=== PATIENT | male | born 1955 | race Caucasian/White ===

== ENCOUNTER 2018-08-23 21:08 | Emergency (ER) | payer BC ==
--- NOTE | 2018-08-23 21:11 | EDM.PDOC ---
Addendum entered and electronically signed by Alfonso Colon MD 08/24/18 02:13: Patient has refused admission and transfer enhances discharged, Dr. Lam is provided antibiotic coverage the patient is making his own arrangements out of state for treatment and plans to travel to the [place] area tomorrow he may return if symptoms persist or worsen or new concerning symptoms develop in the interim Original Note: <Alfonso Colon - Last Filed: 08/24/18 02:11> ED HPI GENERAL MEDICAL PROBLEM - General Chief Complaint: Abdominal Pain Stated Complaint: PT HAS STOMACH PAINS Time Seen by Provider: 08/23/18 21:09 - History of Present Illness INITIAL COMMENTS - FREE TEXT/NARRATIVE: I've seen and discussed lab and CT findings with patient the patient and consult the general surgery for evaluation and treatment disposition - Related Data Allergies Allergy/AdvReac Type Severity Reaction Status Date / Time povidone-iodine Allergy Rash Verified 08/23/18 21:15 [From Betadine] soap [From Betadine] Allergy Rash Verified 08/23/18 21:15 Home Meds: Home Meds Omeprazole 20 mg PO DAILY 11/21/13 [History] Simvastatin [Zocor] 20 mg PO DAILY 11/21/13 [History] oxyCODONE HCl/Acetaminophen [Percocet 10-325 mg Tablet] 1 each PO BID 11/21/13 [ History] Methotrexate Sodium [Methotrexate] 2.5 mg PO DAILY 08/23/18 [History] Tamsulosin [Tamsulosin 24 Hr] 0.4 mg PO DAILY 08/23/18 [History] prednisoLONE [Millipred] 5 mg PO DAILY 08/23/18 [History] ED ROS GENERAL - Review of Systems Review Of Systems: See Below ED EXAM, GI/ABD - Physical Exam Exam: See Below Course - Vital Signs Last Recorded V/S: Last Vital Signs Temp 98 F 08/24/18 02:38 Pulse 78 08/24/18 02:38 Resp 17 08/24/18 02:38 BP 134/78 08/24/18 02:38 Pulse Ox 95 08/24/18 02:38 - Orders/Labs/Meds Labs: Laboratory Tests 08/23/18 08/23/18 08/23/18 Range/Units 21:23 21:23 21:23 WBC 16.11 H (4.0-11.0) K/uL RBC 5.43 (4.50-5.90) M/uL Hgb 16.9 (13.0-17.0) g/dL Hct 50.7 H (38.0-50.0) % MCV 93.4 (80.0-98.0) fL MCH 31.1 (27.0-32.0) pg MCHC 33.3 (31.0-37.0) g/dL RDW Std Deviation 45.2 (28.0-62.0) fl RDW Coeff of Anny 13 (11.0-15.0) % Plt Count 198 (150-400) K/uL MPV 8.90 (7.40-12.00) fL Neut % (Auto) 90.8 H (48.0-80.0) % Lymph % (Auto) 5.7 L (16.0-40.0) % Emery % (Auto) 3.4 (0.0-15.0) % Eos % (Auto) 0.1 (0.0-7.0) % Baso % (Auto) 0.0 (0.0-1.5) % Neut # (Auto) 14.6 H (1.4-5.7) K/uL Lymph # (Auto) 0.9 (0.6-2.4) K/uL Emery # (Auto) 0.6 (0.0-0.8) K/uL Eos # (Auto) 0.0 (0.0-0.7) K/uL Baso # (Auto) 0.0 (0.0-0.1) K/uL Sodium 139 (136-148) mmol/L Potassium 3.6 (3.5-5.1) mmol/L Chloride 98 (98-107) mmol/L Carbon Dioxide 33.7 H (21.0-32.0) mmol/L BUN 20 H (7.0-18.0) mg/dL Creatinine 1.0 (0.8-1.3) mg/dL Est Cr Clr Drug Dosing 75.61 mL/min Estimated GFR (MDRD) > 60.0 ml/min Glucose 138 H (74-106) mg/dL Calcium 9.1 (8.5-10.1) mg/dL Total Bilirubin 0.8 (0.2-1.0) mg/dL AST 18 (15-37) IU/L ALT 32 (14-63) IU/L Alkaline Phosphatase 80 (46-116) U/L Troponin I (0.000-0.056) ng/mL Total Protein 7.3 (6.4-8.2) g/dL Albumin 3.8 (3.4-5.0) g/dL Globulin 3.5 (2.6-4.0) g/dL Albumin/Globulin Ratio 1.1 (0.9-1.6) Lipase 67 L (73-393) U/L Urine Color YELLOW Urine Appearance CLEAR Urine pH 7.0 (5.0-8.0) Ur Specific [place] 1.010 (1.001-1.035) Urine Protein NEGATIVE (NEGATIVE) mg/dL Urine Glucose (UA) NEGATIVE (NEGATIVE) mg/dL Urine Ketones NEGATIVE (NEGATIVE) mg/dL Urine Occult Blood NEGATIVE (NEGATIVE) Urine Nitrite NEGATIVE (NEGATIVE) Urine Bilirubin NEGATIVE (NEGATIVE) Urine Urobilinogen 1.0 (<2.0) EU/dL Ur Leukocyte Esterase NEGATIVE (NEGATIVE) 08/23/18 Range/Units 21:23 WBC (4.0-11.0) K/uL RBC (4.50-5.90) M/uL Hgb (13.0-17.0) g/dL Hct (38.0-50.0) % MCV (80.0-98.0) fL MCH (27.0-32.0) pg MCHC (31.0-37.0) g/dL RDW Std Deviation (28.0-62.0) fl RDW Coeff of Anny (11.0-15.0) % Plt Count (150-400) K/uL MPV (7.40-12.00) fL Neut % (Auto) (48.0-80.0) % Lymph % (Auto) (16.0-40.0) % Emery % (Auto) (0.0-15.0) % Eos % (Auto) (0.0-7.0) % Baso % (Auto) (0.0-1.5) % Neut # (Auto) (1.4-5.7) K/uL Lymph # (Auto) (0.6-2.4) K/uL Emery # (Auto) (0.0-0.8) K/uL Eos # (Auto) (0.0-0.7) K/uL Baso # (Auto) (0.0-0.1) K/uL Sodium (136-148) mmol/L Potassium (3.5-5.1) mmol/L Chloride (98-107) mmol/L Carbon Dioxide (21.0-32.0) mmol/L BUN (7.0-18.0) mg/dL Creatinine (0.8-1.3) mg/dL Est Cr Clr Drug Dosing mL/min Estimated GFR (MDRD) ml/min Glucose (74-106) mg/dL Calcium (8.5-10.1) mg/dL Total Bilirubin (0.2-1.0) mg/dL AST (15-37) IU/L ALT (14-63) IU/L Alkaline Phosphatase (46-116) U/L Troponin I < 0.050 (0.000-0.056) ng/mL Total Protein (6.4-8.2) g/dL Albumin (3.4-5.0) g/dL Globulin (2.6-4.0) g/dL Albumin/Globulin Ratio (0.9-1.6) Lipase (73-393) U/L Urine Color Urine Appearance Urine pH (5.0-8.0) Ur Specific [place] (1.001-1.035) Urine Protein (NEGATIVE) mg/dL Urine Glucose (UA) (NEGATIVE) mg/dL Urine Ketones (NEGATIVE) mg/dL Urine Occult Blood (NEGATIVE) Urine Nitrite (NEGATIVE) Urine Bilirubin (NEGATIVE) Urine Urobilinogen (<2.0) EU/dL Ur Leukocyte Esterase (NEGATIVE) Meds: Medications Discontinued Medications Generic Name Dose Route Start Last Admin Trade Name Freq PRN Reason Stop Dose Admin Sodium Chloride 1,000 mls @ 999 mls/hr 08/23/18 21:11 08/23/18 21:23 Normal Saline IV 08/23/18 22:11 999 mls/hr STAT ONE Administration Piperacillin Sod/Tazobactam 50 mls @ 100 mls/hr 08/24/18 01:16 08/24/18 01:26 Sod 3.375 gm/ Sodium Chloride IV 08/24/18 01:45 100 mls/hr ONETIME ONE Administration Ondansetron HCl 8 mg 08/23/18 22:37 08/23/18 22:42 Zofran IVPUSH 08/23/18 22:38 8 mg ONETIME ONE Administration Departure - Departure Time of Disposition: 02:12 Disposition: Home, Self-Care 01 Condition: Fair Clinical Impression: Abdominal pain, Abscess - Discharge Information Instructions: Abdominal Pain, Adult, [id number] Referrals: PCP,None [Primary Care Provider] - Forms: ED Department Discharge Additional Instructions: The following information is given to patients seen in the emergency department who are being discharged to home. This information is to outline your options for follow-up care. We provide all patients seen in our emergency department with a follow-up referral. The need for follow-up, as well as the timing and circumstances, are variable depending upon the specifics of your emergency department visit. If you don't have a primary care physician on staff, we will provide you with a referral. We always advise you to contact your personal physician following an emergency department visit to inform them of the circumstance of the visit and for follow-up with them and/or the need for any referrals to a consulting specialist. The emergency department will also refer you to a specialist when appropriate. This referral assures that you have the opportunity for follow-up care with a specialist. All of these measure are taken in an effort to provide you with optimal care, which includes your follow-up. Under all circumstances we always encourage you to contact your private physician who remains a resource for coordinating your care. When calling for follow-up care, please make the office aware that this follow-up is from your recent emergency room visit. If for any reason you are refused follow-up, please contact the [facility] emergency department at and asked to speak to the emergency department charge nurse. <Keon Dunn E - Last Filed: 08/26/18 10:08> ED HPI GENERAL MEDICAL PROBLEM - General Source of Information: Reports: Patient History Limitations: Reports: No Limitations - History of Present Illness INITIAL COMMENTS - FREE TEXT/NARRATIVE: HISTORY AND PHYSICAL: History of present illness: Patient is a 63-year-old male presents to the ED today with concerns of generalized abdominal pain. Patient rates his pain a 10 out of 10 and comes and goes. Patient does have a history of prior small bowel obstruction requiring resection. Patient states his pain today is similar to when he was diagnosed with a small bowel obstruction. Patient states he feels as if he is bloated and unable to pass gas. He states he is also noticed a change in the stools and that they are more like diarrhea. He states he's had about 4-5 episodes of diarrhea the past 2-3 days. Patient states he has felt nauseous without vomiting. Patient states he does take oxycodone regularly for a knee that has been having issues. He states he has taken a total of 30 mg of this today. He states he just took a pill while driving over here. Patient denies fever, chills, and vomiting, blood in the stool or urine, burning with urination, headache, diaphoresis, chest pain, shortness of breath, cough or all other GI, , cardiovascular, respiratory concerns. Patient does have a history of rheumatoid arthritis currently on methotrexate. He uses occasional prednisone for flares. He did take a dose of prednisone on Wednesday. Patient also has a history of small bowel extraction s/p resection, and hernia repair s/p mesh placement. Review of systems: As per history of present illness and below otherwise all systems reviewed and negative. Past medical history: As per history of present illness and as reviewed below otherwise noncontributory. Surgical history: As per history of present illness and as reviewed below otherwise noncontributory. Social history: See social history for further information Family history: As per history of present illness and as reviewed below otherwise noncontributory. Physical exam: General: Patient is alert, oriented, and in no acute distress. He is sitting comfortably on exam table. HEENT: Atraumatic, normocephalic, pupils equal and reactive bilaterally, negative for conjunctival pallor or scleral icterus, mucous membranes moist, TMs normal bilaterally, throat clear, neck supple, nontender, trachea midline. No drooling or trismus noted. No meningeal signs. No hot potato voice noted. Lungs: Clear to auscultation, breath sounds equal bilaterally, chest nontender. Heart: S1S2, regular rate and rhythm without overt murmur Abdomen: Abdominal exam is limited due to patient taking narcotic pain medication on way to ED. Obese, firm, distended, nontender. Bowel sounds are hyperactive in all quadrants. Negative for masses or hepatosplenomegaly. Negative for costovertebral tenderness. Pelvis: Stable nontender. Genitourinary: Deferred. Rectal: Deferred. Skin: Intact, warm, dry. No lesions or rashes noted. Extremities: Atraumatic, negative for cords or calf pain. Neurovascular unremarkable. Neuro: Awake, alert, oriented. Cranial nerves II through XII unremarkable. Cerebellum unremarkable. Motor and sensory unremarkable throughout. Exam nonfocal. Notes: Exam of the abdomen for pain assessment is limited due to patient's taking narcotic pain medication just prior to arrival to the ED. However, his abdomen is firm and distended with hyperactive bowel sounds. Will do labs and imaging today. Dr. Gonzalez has assumed care of this patient and will follow remaining diagnostics and disposition. Diagnostics: CBC, CMP, UA, lipase, EKG, troponin, abdominal pelvic CT Therapeutics: IV fluid, Zofran Prescription: Impression: Plan: Definitive disposition and diagnosis as appropriate pending reevaluation and review of above. Abdominal Pain Score (Numeric/FACES): 10 ED ROS GENERAL - Review of Systems Review Of Systems: ROS reveals no pertinent complaints other than HPI. ED EXAM, GI/ABD - Physical Exam Exam: See Below (See dictation) Course - Vital Signs Last Recorded V/S: Last Vital Signs Temp 98 F 08/24/18 02:38 Pulse 78 08/24/18 02:38 Resp 17 08/24/18 02:38 BP 134/78 08/24/18 02:38 Pulse Ox 95 08/24/18 02:38 - Orders/Labs/Meds Labs: Laboratory Tests 08/23/18 08/23/18 08/23/18 Range/Units 21:23 21:23 21:23 WBC 16.11 H (4.0-11.0) K/uL RBC 5.43 (4.50-5.90) M/uL Hgb 16.9 (13.0-17.0) g/dL Hct 50.7 H (38.0-50.0) % MCV 93.4 (80.0-98.0) fL MCH 31.1 (27.0-32.0) pg MCHC 33.3 (31.0-37.0) g/dL RDW Std Deviation 45.2 (28.0-62.0) fl RDW Coeff of Anny 13 (11.0-15.0) % Plt Count 198 (150-400) K/uL MPV 8.90 (7.40-12.00) fL Neut % (Auto) 90.8 H (48.0-80.0) % Lymph % (Auto) 5.7 L (16.0-40.0) % Emery % (Auto) 3.4 (0.0-15.0) % Eos % (Auto) 0.1 (0.0-7.0) % Baso % (Auto) 0.0 (0.0-1.5) % Neut # (Auto) 14.6 H (1.4-5.7) K/uL Lymph # (Auto) 0.9 (0.6-2.4) K/uL Emery # (Auto) 0.6 (0.0-0.8) K/uL Eos # (Auto) 0.0 (0.0-0.7) K/uL Baso # (Auto) 0.0 (0.0-0.1) K/uL Sodium 139 (136-148) mmol/L Potassium 3.6 (3.5-5.1) mmol/L Chloride 98 (98-107) mmol/L Carbon Dioxide 33.7 H (21.0-32.0) mmol/L BUN 20 H (7.0-18.0) mg/dL Creatinine 1.0 (0.8-1.3) mg/dL Est Cr Clr Drug Dosing 75.61 mL/min Estimated GFR (MDRD) > 60.0 ml/min Glucose 138 H (74-106) mg/dL Calcium 9.1 (8.5-10.1) mg/dL Total Bilirubin 0.8 (0.2-1.0) mg/dL AST 18 (15-37) IU/L ALT 32 (14-63) IU/L Alkaline Phosphatase 80 (46-116) U/L Troponin I (0.000-0.056) ng/mL Total Protein 7.3 (6.4-8.2) g/dL Albumin 3.8 (3.4-5.0) g/dL Globulin 3.5 (2.6-4.0) g/dL Albumin/Globulin Ratio 1.1 (0.9-1.6) Lipase 67 L (73-393) U/L Urine Color YELLOW Urine Appearance CLEAR Urine pH 7.0 (5.0-8.0) Ur Specific [place] 1.010 (1.001-1.035) Urine Protein NEGATIVE (NEGATIVE) mg/dL Urine Glucose (UA) NEGATIVE (NEGATIVE) mg/dL Urine Ketones NEGATIVE (NEGATIVE) mg/dL Urine Occult Blood NEGATIVE (NEGATIVE) Urine Nitrite NEGATIVE (NEGATIVE) Urine Bilirubin NEGATIVE (NEGATIVE) Urine Urobilinogen 1.0 (<2.0) EU/dL Ur Leukocyte Esterase NEGATIVE (NEGATIVE) 08/23/18 Range/Units 21:23 WBC (4.0-11.0) K/uL RBC (4.50-5.90) M/uL Hgb (13.0-17.0) g/dL Hct (38.0-50.0) % MCV (80.0-98.0) fL MCH (27.0-32.0) pg MCHC (31.0-37.0) g/dL RDW Std Deviation (28.0-62.0) fl RDW Coeff of Anny (11.0-15.0) % Plt Count (150-400) K/uL MPV (7.40-12.00) fL Neut % (Auto) (48.0-80.0) % Lymph % (Auto) (16.0-40.0) % Emery % (Auto) (0.0-15.0) % Eos % (Auto) (0.0-7.0) % Baso % (Auto) (0.0-1.5) % Neut # (Auto) (1.4-5.7) K/uL Lymph # (Auto) (0.6-2.4) K/uL Emery # (Auto) (0.0-0.8) K/uL Eos # (Auto) (0.0-0.7) K/uL Baso # (Auto) (0.0-0.1) K/uL Sodium (136-148) mmol/L Potassium (3.5-5.1) mmol/L Chloride (98-107) mmol/L Carbon Dioxide (21.0-32.0) mmol/L BUN (7.0-18.0) mg/dL Creatinine (0.8-1.3) mg/dL Est Cr Clr Drug Dosing mL/min Estimated GFR (MDRD) ml/min Glucose (74-106) mg/dL Calcium (8.5-10.1) mg/dL Total Bilirubin (0.2-1.0) mg/dL AST (15-37) IU/L ALT (14-63) IU/L Alkaline Phosphatase (46-116) U/L Troponin I < 0.050 (0.000-0.056) ng/mL Total Protein (6.4-8.2) g/dL Albumin (3.4-5.0) g/dL Globulin (2.6-4.0) g/dL Albumin/Globulin Ratio (0.9-1.6) Lipase (73-393) U/L Urine Color Urine Appearance Urine pH (5.0-8.0) Ur Specific [place] (1.001-1.035) Urine Protein (NEGATIVE) mg/dL Urine Glucose (UA) (NEGATIVE) mg/dL Urine Ketones (NEGATIVE) mg/dL Urine Occult Blood (NEGATIVE) Urine Nitrite (NEGATIVE) Urine Bilirubin (NEGATIVE) Urine Urobilinogen (<2.0) EU/dL Ur Leukocyte Esterase (NEGATIVE) Meds: Medications Discontinued Medications Generic Name Dose Route Start Last Admin Trade Name Freq PRN Reason Stop Dose Admin Sodium Chloride 1,000 mls @ 999 mls/hr 08/23/18 21:11 08/23/18 21:23 Normal Saline IV 08/23/18 22:11 999 mls/hr STAT ONE Administration Piperacillin Sod/Tazobactam 50 mls @ 100 mls/hr 08/24/18 01:16 08/24/18 01:26 Sod 3.375 gm/ Sodium Chloride IV 08/24/18 01:45 100 mls/hr ONETIME ONE Administration Ondansetron HCl 8 mg 08/23/18 22:37 08/23/18 22:42 Zofran IVPUSH 08/23/18 22:38 8 mg ONETIME ONE Administration
[2018-08-23] MEDS: Sodium Chloride 0.9% 1,000 ML IV ONE (21:23)
[2018-08-23 21:56] LABS: CHLORIDE,CL 98 mmol/L (98-107); SODIUM,NA 139 mmol/L (136-148)
[2018-08-23] MEDS: Ondansetron 4 MG/2 ML SDV IVPUSH ONE (22:42)
--- NOTE | 2018-08-23 23:14 | CT ---
INDICATION: Abdominal pain. Diarrhea. TECHNIQUE: CT abdomen and pelvis acquired with IV contrast. 100 mL of Isovue 370 administered. COMPARISON: 11/21/2013 FINDINGS: Lower chest: Unremarkable. Liver: A 1.7 x 1.1 cm hepatic cyst again seen. A sub centimeter left hepatic low density focus on image 21, too small to characterize, possibly a small cyst as well. A 1.8 x 1.4 cm low density focus in the posteromedial right lower lobe on image 47, nonspecific, possibly representing focal fatty infiltration. Spleen: Unremarkable. Pancreas: Unremarkable. Gallbladder and bile ducts: Unremarkable. Adrenal glands: Unremarkable. Kidneys: No hydronephrosis. Left renal cysts, measuring up to 2.4 cm. GI tract: Thickening of the anterior wall of the distal gastric body and antrum could be related to incomplete distention. Dilated fluid and gas-filled small bowel segments without a discrete transition point. Nondilated fluid-filled distal small bowel segments seen. The appendix is not seen. Sigmoid diverticulosis without diverticulitis. Stool throughout the majority of the colon. Vascular structures: Mild atherosclerotic changes. Lymph nodes: Unremarkable. Miscellaneous: A 17.9 x 4.5 x 8.0 cm collection in the anterior abdominal wall with thin peripheral enhancement. Apparent trace focal free-fluid in the anterior left pelvis. No free air. Pelvic Organs: Mild anterior bladder wall thickening versus incomplete distention. A soft tissue density at the bladder base on image 77 of series 204 could be related to the underlying prostate. A small enhancing focus in the prostate, right of midline on image 146, nonspecific. Bones: Unremarkable for age. IMPRESSION: A large peripherally enhancing collection in the anterior abdominal wall consistent with an abscess or an organized postsurgical collection. Correlate clinically and with aspiration. Multiple prominent fluid and gas-filled small bowel segments without a discrete transition point, which could represent ileus or a partial or early obstruction. Correlate clinically for superimposed enteritis. A soft tissue density in the lateral base could be related to the underlying prostate. A small enhancing focus within the prostate is nonspecific. Recommend further urological evaluation. A low-density area in the posteromedial right hepatic lobe, nonspecific, possibly representing focal fatty infiltration. Recommend followup evaluation. Thickening of the anterior wall of the distal gastric body and antrum could be related to underdistention. Followup evaluation of this region should be considered. Dictated by Sanjay Mondragon MD @ 08/23/2018 11:11:50 PM Please note that all CT scans at this facility use dose modulation, iterative reconstruction, and/or weight-based dosing when appropriate to reduce radiation dose to as low as reasonably achievable. Dictated by: Sanjay Mondragon MD @ 08/23/2018 23:13:18 (Electronically Signed)
--- NOTE | 2018-08-24 00:57 | PCM.CONS ---
H&P History of Present Illness - General Date of Service: 08/24/18 Source of Information: Patient History Limitations: Reports: No Limitations - History of Present Illness Initial Comments - Free Text/Narative: Patient is a 63 year old male with a past medical history significant for RA on embrel and methotrexate, HTN, HLD, and past surgical history significant for 3 previous complex abdominal hernia repairs that presents with abdominal pain. It started today and was 10/10. He took an oxycodone and presented to the ER. He denies fevers, chills, nausea, vomiting, and is still passing flatus. He does complain of abdominal distension when the pain began. His vitals were stable other than some hypertension. His pain resolved after being admitted to the ED. CBC showed a WBC of 16K with a left shift (90%). He had a CT scan of his abdomen that shows some fluid dilated loops of small bowel and a large anterior abdominal wall fluid collection concerning for a possible abscess. He denies trauma to the area but there is a bruise just inferior and to the right of the umbilicus. 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 He had his hernia repairs in [place], [place] at [facility] since he is from [place] and doesnt live here permanently. Abdominal Pain Score (Numeric/FACES): 10 - Related Data Allergies/Adverse Reactions: Allergies Allergy/AdvReac Type Severity Reaction Status Date / Time povidone-iodine Allergy Rash Verified 08/23/18 21:15 [From Betadine] soap [From Betadine] Allergy Rash Verified 08/23/18 21:15 Home Medications: Home Meds Omeprazole 20 mg PO DAILY 11/21/13 [History] Simvastatin [Zocor] 20 mg PO DAILY 11/21/13 [History] oxyCODONE HCl/Acetaminophen [Percocet 10-325 mg Tablet] 1 each PO BID 11/21/13 [ History] Methotrexate Sodium [Methotrexate] 2.5 mg PO DAILY 08/23/18 [History] Tamsulosin [Tamsulosin 24 Hr] 0.4 mg PO DAILY 08/23/18 [History] prednisoLONE [Millipred] 5 mg PO DAILY 08/23/18 [History] Past Medical History HEENT History: Reports: Hard of Hearing, Impaired Vision Cardiovascular History: Reports: High Cholesterol, Other (See Below) (HTN) Respiratory History: Reports: None Gastrointestinal History: Reports: Bowel Obstruction, Other (See Below) ( Abdominal wall hernia) Genitourinary History: Reports: None Musculoskeletal History: Reports: RA, Other (See Below) Other Musculoskeletal History: Restless leg Neurological History: Reports: None Endocrine/Metabolic History: Reports: None Immunologic History: Reports: None Oncologic (Cancer) History: Reports: None - Infectious Disease History Infectious Disease History: Reports: None - Past Surgical History Head Surgeries/Procedures: Reports: None GI Surgical History: Reports: Hernia, Abdominal Social & Family History - Family History Family Medical History: Noncontributory - Tobacco Use Smoking Status *Q: Never Smoker Second Hand Smoke Exposure: No - Caffeine Use Caffeine Use: Reports: Coffee - Recreational Drug Use Recreational Drug Use: No H&P Review of Systems - Review of Systems: Review Of Systems: ROS reveals no pertinent complaints other than HPI. Exam - Exam Exam: See Below - Vital Signs Vital Signs: Last Vital Signs Temp 36.6 C 08/23/18 23:57 Pulse 79 08/23/18 23:57 Resp 18 08/23/18 23:57 BP 135/70 08/23/18 23:57 Pulse Ox 95 08/23/18 23:57 Weight: 106.594 kg - Exam General: Alert, Oriented, Cooperative HEENT: Conjunctiva Clear, Mucosa Moist & [place], Posterior Pharynx Clear Neck: Supple, Trachea Midline Lungs: Clear to Auscultation, Normal Respiratory Effort Cardiovascular: Regular Rate, Regular Rhythm GI/Abdominal Exam: Soft, Non-Tender, No Distention, Other (firm area around the umbilicus. Well healed large midline scar. No erythema, warmth or tenderness. No drainage) - Patient Data Lab Results Last 24 hrs: Laboratory Results - last 24 hr 08/23/18 08/23/18 08/23/18 Range/Units 21:23 21:23 21:23 WBC 16.11 H (4.0-11.0) K/uL RBC 5.43 (4.50-5.90) M/uL Hgb 16.9 (13.0-17.0) g/dL Hct 50.7 H (38.0-50.0) % MCV 93.4 (80.0-98.0) fL MCH 31.1 (27.0-32.0) pg MCHC 33.3 (31.0-37.0) g/dL RDW Std Deviation 45.2 (28.0-62.0) fl RDW Coeff of Anny 13 (11.0-15.0) % Plt Count 198 (150-400) K/uL MPV 8.90 (7.40-12.00) fL Neut % (Auto) 90.8 H (48.0-80.0) % Lymph % (Auto) 5.7 L (16.0-40.0) % [place] % (Auto) 3.4 (0.0-15.0) % Eos % (Auto) 0.1 (0.0-7.0) % Baso % (Auto) 0.0 (0.0-1.5) % Neut # (Auto) 14.6 H (1.4-5.7) K/uL Lymph # (Auto) 0.9 (0.6-2.4) K/uL [place] # (Auto) 0.6 (0.0-0.8) K/uL Eos # (Auto) 0.0 (0.0-0.7) K/uL Baso # (Auto) 0.0 (0.0-0.1) K/uL Sodium 139 (136-148) mmol/L Potassium 3.6 (3.5-5.1) mmol/L Chloride 98 (98-107) mmol/L Carbon Dioxide 33.7 H (21.0-32.0) mmol/L BUN 20 H (7.0-18.0) mg/dL Creatinine 1.0 (0.8-1.3) mg/dL Est Cr Clr Drug Dosing 75.61 mL/min Estimated GFR (MDRD) > 60.0 ml/min Glucose 138 H (74-106) mg/dL Calcium 9.1 (8.5-10.1) mg/dL Total Bilirubin 0.8 (0.2-1.0) mg/dL AST 18 (15-37) IU/L ALT 32 (14-63) IU/L Alkaline Phosphatase 80 (46-116) U/L Troponin I (0.000-0.056) ng/mL Total Protein 7.3 (6.4-8.2) g/dL Albumin 3.8 (3.4-5.0) g/dL Globulin 3.5 (2.6-4.0) g/dL Albumin/Globulin Ratio 1.1 (0.9-1.6) Lipase 67 L (73-393) U/L Urine Color YELLOW Urine Appearance CLEAR Urine pH 7.0 (5.0-8.0) Ur Specific [place] 1.010 (1.001-1.035) Urine Protein NEGATIVE (NEGATIVE) mg/dL Urine Glucose (UA) NEGATIVE (NEGATIVE) mg/dL Urine Ketones NEGATIVE (NEGATIVE) mg/dL Urine Occult Blood NEGATIVE (NEGATIVE) Urine Nitrite NEGATIVE (NEGATIVE) Urine Bilirubin NEGATIVE (NEGATIVE) Urine Urobilinogen 1.0 (<2.0) EU/dL Ur Leukocyte Esterase NEGATIVE (NEGATIVE) 08/23/18 Range/Units 21:23 WBC (4.0-11.0) K/uL RBC (4.50-5.90) M/uL Hgb (13.0-17.0) g/dL Hct (38.0-50.0) % MCV (80.0-98.0) fL MCH (27.0-32.0) pg MCHC (31.0-37.0) g/dL RDW Std Deviation (28.0-62.0) fl RDW Coeff of Anny (11.0-15.0) % Plt Count (150-400) K/uL MPV (7.40-12.00) fL Neut % (Auto) (48.0-80.0) % Lymph % (Auto) (16.0-40.0) % [place] % (Auto) (0.0-15.0) % Eos % (Auto) (0.0-7.0) % Baso % (Auto) (0.0-1.5) % Neut # (Auto) (1.4-5.7) K/uL Lymph # (Auto) (0.6-2.4) K/uL [place] # (Auto) (0.0-0.8) K/uL Eos # (Auto) (0.0-0.7) K/uL Baso # (Auto) (0.0-0.1) K/uL Sodium (136-148) mmol/L Potassium (3.5-5.1) mmol/L Chloride (98-107) mmol/L Carbon Dioxide (21.0-32.0) mmol/L BUN (7.0-18.0) mg/dL Creatinine (0.8-1.3) mg/dL Est Cr Clr Drug Dosing mL/min Estimated GFR (MDRD) ml/min Glucose (74-106) mg/dL Calcium (8.5-10.1) mg/dL Total Bilirubin (0.2-1.0) mg/dL AST (15-37) IU/L ALT (14-63) IU/L Alkaline Phosphatase (46-116) U/L Troponin I < 0.050 (0.000-0.056) ng/mL Total Protein (6.4-8.2) g/dL Albumin (3.4-5.0) g/dL Globulin (2.6-4.0) g/dL Albumin/Globulin Ratio (0.9-1.6) Lipase (73-393) U/L Urine Color Urine Appearance Urine pH (5.0-8.0) Ur Specific [place] (1.001-1.035) Urine Protein (NEGATIVE) mg/dL Urine Glucose (UA) (NEGATIVE) mg/dL Urine Ketones (NEGATIVE) mg/dL Urine Occult Blood (NEGATIVE) Urine Nitrite (NEGATIVE) Urine Bilirubin (NEGATIVE) Urine Urobilinogen (<2.0) EU/dL Ur Leukocyte Esterase (NEGATIVE) Result Diagrams: 08/23/18 21:23 08/23/18 21:23 [place] Results Last 24 hrs: Microbiology 08/23/18 22:45 Clostridium difficile Toxin A & B - Final Stool / Feces Negative for C.Diff Toxin/AG Stool Occult Blood ([facility]) - Final NEGATIVE OCCULT BLOOD 08/23/18 22:45 Campylobacter Antigen Assay - Final Stool / Feces NEGATIVE CAMPYLOBACTER AG Consult PN Assessment/Plan Procedures: Procedures ASSAY OF AMYLASE (11/21/13) ASSAY OF LIPASE (11/21/13) ASSAY OF TROPONIN QUANT (11/21/13) COMPLETE CBC W/AUTO DIFF WBC (11/21/13) COMPREHEN METABOLIC PANEL (11/21/13) CT ABD & PELVIS W/O CONTRAST (11/21/13) ELECTROCARDIOGRAM TRACING (11/21/13) EMERGENCY DEPT VISIT (11/21/13) HYDRATE IV INFUSION ADD-ON (11/21/13) PROTHROMBIN TIME (11/21/13) ROUTINE VENIPUNCTURE (11/21/13) THER/PROPH/DIAG INJ IV PUSH (11/21/13) TX/PRO/DX INJ NEW DRUG ADDON (11/21/13) (1) Abdominal wall abscess SNOMED Code(s): 90881923 Code(s): L02.211 - CUTANEOUS ABSCESS OF ABDOMINAL WALL Current Visit: Yes Problem List Initiated/Reviewed/Updated: Yes Plan: The patient and I discussed his CT findings together. Given his history, I am concerned that he has a serious mesh infection. I recommended transfer to a hospital with greater resources for in patient care, further work up and possible surgical management. He may need to be transferred back to [facility] if this is a complex mesh infection or small bowel fistula. He is from [place] and receives all his care there and at [facility]. He refused transfer and would like to travel by personal means to [place]. We discussed the risks of this including worsening infection, sepsis, more complex surgical complications and/or . He understands this completely and will sign out AMA. Since he seems reasonable, I will give him a dose of IV zosyn before he leaves and two days of cipro/flagyl. I explained that this is NOT adequate treatment for his infection and he should go immediately to the nearest ER should he develop any fever, chills, abdominal pain or other signs of infection. He verbalized understanding.
[2018-08-24] MEDS: Piperacillin/Tazobactam 3.375 GM in Sodium Chloride 0.9% 50 ML IV ONE (01:26)
== END 2018-08-24 02:38 | disposition home or self-care (01) ==
LOC: MW.ED 21:08
DX: L02.211 Cutaneous abscess of abdominal wall (principal); Z79.899 Other long term (current) drug therapy; Z88.1 Allergy status to other antibiotic agents
CPT/HCPCS: 36415; 74177; 80053; 81003; 82272; 83690; 84484; 85025; 87046; 87324; 87328; 87329; 87899; 93005; 96361; 96365; 96375; 99284; J2405; J2543; J7040; J7050; 87177